=== PATIENT | male | born 1980 | race Caucasian/White ===

== ENCOUNTER 2019-06-12 09:18 | Outpatient (CLI) | payer MEDICARE, MEDICAID, SELFPAY ==
--- NOTE | 2019-06-12 09:30 | US_ITS ---
WS: [id number] Complete ABDOMINAL ULTRASOUND HISTORY: GASTRITIS UNSPECIFIED WITHOUT BLEEDING COMPARISON: None available. Liver: 14.9 cm in length. Liver is normal size and echogenicity with no mass or intrahepatic dilatati on. Gallbladder: Normally distended with no gallstones, wall thickening or pericholecystic fluid. Gallbladder wall thickness: 0.2 cm. Pancreas: Not visualized. Completely obscured by bowel gas. CBD: 0.6 cm. Top normal size. Right kidney: 12.5 cm x 4.9 cm x 4.8 cm. No mass, cortical thickening or hydronephrosis. Left kidney: 11.9 cm x 4.2 cm x 5.1 cm. No mass, cortical thickening or hydronephrosis. Spleen: Normal size and echogenicity. Abdominal aorta and IVC are within normal limits. No ascites. US/US abdomen complete* [id number] IMPRESSION: 1. Negative gallbladder. 2. Common bile duct top normal size. 3. Pancreas completely obscured by bowel gas.
== END 2019-06-12 09:19 | disposition home or self-care (01) ==
LOC: RAD 09:22 → RADWPI 09:25
PROVIDERS: Family Provider Family Medicine; PCP Family Medicine; Visit Provider Family Medicine
DX: K29.70 Gastritis, unspecified, without bleeding (principal)
CPT/HCPCS: 76700

== ENCOUNTER 2019-06-20 07:32 | Outpatient (CLI) | payer MEDICARE, MEDICAID, SELFPAY ==
--- NOTE | 2019-06-20 07:38 | NM_ITS ---
WS: [id number] NUCLEAR MEDICINE HIDA SCAN WITH GALLBLADDER EJECTION FRACTION HISTORY: RT SIDED ABD PAIN COMPARISON: Ultrasound 06/12/2019 TECHNIQUE: The patient was intravenously injected with 7.6 mCi of TC99m Mebrofenin. Immediate imaging over the right upper quadrant was followed by 5 minute image and additional images for a total of 60 minutes. Normal uptake of radiotracer throughout the liver. Activity identified in the gallbladder at 10 minutes and well distended by 60 minutes. Activity in the proximal small bowel was seen by 10 minutes. Good washout of the radiotracer from the liver by 60 minutes. The patient then drank 8 ounces of Ensure Plus. Ejection fraction at 60 minutes was 74%. Normal GB ej ection fraction is 35-75%. Post fatty meal symptoms: None. NM/NM hepatobiliary w phar* [id number] IMPRESSION: 1. Normal HIDA scan. 2. Normal gallbladder ejection fraction.
== END 2019-06-20 07:33 | disposition home or self-care (01) ==
LOC: RAD 07:36
PROVIDERS: Family Provider Family Medicine; PCP Family Medicine; Visit Provider Family Medicine
DX: R10.9 Unspecified abdominal pain (principal)
CPT/HCPCS: 78227; A9537

== ENCOUNTER 2019-08-26 09:30 | Day surgery (SDC) | payer MEDICARE, MEDICAID, SELFPAY ==
[2019-08-23 12:26] VITALS: BMI 34.7
[2019-08-26 09:43] VITALS: BP 123/82; PULSE 82; RESP 18; O2SAT 97
[2019-08-26] MEDS: sodium chloride 0.9% 1,000 ML 30 ML IV (09:52)
--- NOTE | 2019-08-26 10:01 | ANES.PREANE2 ---
Pre-Anesthetic Assessment Pre-Anesthetic Assessment: Height/Weight: Height 1.75 m Weight 106.594 kg Pulse Resp BP Pulse Ox 82 18 123/82 97 08/26/19 09:43 08/26/19 09:43 08/26/19 09:43 08/26/19 09:43 Preop Diagnosis: dys Proposed Procedure: Operation Date: 08/26/19 11:00 Proposed Procedures p EGD Dilation W/ Bougie 20160 R13.10(Not Applicable) - Akil Taylor MD Last intake: Intake Last Liquid Date 08/25/19 Last Liquid Time 22:30 Last Solid Date 08/25/19 Last Solid Time 19:30 Social: Social History: Tobacco and No alcohol Exam: Pre-Anes Outpt Exam: alert, oriented x 3, clear to auscultation bilaterally and regular rate & rhythm Airway: Submandibular: WNL Cervical ROM: WNL MP: 1 Dentition: Other (teeth ok) History/ROS: No significant history except as noted Pulmonary: Pulmonary: COPD and [place] CV/HEM: CV/HEM: CAD (03/2017 stent), HTN and MO : : None reported Hepatic: Hepatic: None reported GI: GI: GERD (controlled) Metabolic: Metabolic: Hyperlipidemia Musc/skel: Musc/skel: OA/DJD and Weakness (gen) Comments: MS Neuropsych: Neuropsych: Anxiety and Depression Anesthetic Plan: ASA status: 3 Anesthesia: Anesthesia Evaluation and MAC Risk of > 500 ml blood loss (7ml/kg in children): No Meds/Allergies Current Medications: Current Medications Generic Name Dose Route Start Last Admin Trade Name Freq PRN Reason Stop Dose Admin Sodium Chloride 1,000 mls @ 30 ml s/hr 08/26/19 09:45 08/26/19 09:52 Sodium Chloride 0.9% IV 08/27/19 09:44 30 mls/hr .Q24H KJ Administration PFSH Anesthesia PFSH: Medical History AVN (avascular necrosis of bone) Essential (primary) hypertension Surgical History H/O gastric bypass Family History Other Diabetes Heart disease Social History Smoking and tobacco status: current every day smoker Alcohol intake: former service: No History of recent travel: No Current gender identity: Male Data Anesthesia Cardiac Studies: No Data to Display
--- NOTE | 2019-08-26 11:29 | W.PM.OPSUD ---
Surgery/Procedure H&P Update DATE OF PROCEDURE: August 26, 2019 DATE H&P PERFORMED: 08/22/19 PREOP DIAGNOSIS: dys PLANNED PROCEDURE: Operation Date: 08/26/19 11:00 Proposed Procedures p EGD Dilation W/ Christy 60297 R13.10(Not Applicable) - Akil Taylor MD
[2019-08-26 11:35] VITALS: BP 110/69; PULSE 74; RESP 16; TEMP 36.8; O2SAT 97
--- NOTE | 2019-08-26 11:38 | ANE.PACU2 ---
Inpatient post-anesthesia follow up: Airway intact: Yes Vital signs: Temperature Pulse Rate 82 Respiratory Rate 18 Blood Pressure 123/82 Pulse Oximetry 97 Oxygen Delivery Me thod Room Air Oxygen Flow Rate Fraction of Inspir ed Oxygen Hydration adequate: Yes Nausea and vomiting: No Pain level: 1 Mental status: Baseline
[2019-08-26 11:50] VITALS: BP 117/77; PULSE 68; RESP 18; O2SAT 99
== END 2019-08-26 12:15 | disposition home or self-care (01) ==
PROVIDERS: PCP Family Medicine; Visit Provider Internal Medicine
DX: R13.10 Dysphagia, unspecified (principal); Z98.84 Bariatric surgery status; J44.9 Chronic obstructive pulmonary disease, unspecified; I25.10 Atherosclerotic heart disease of native coronary artery without angina pectoris; Z95.5 Presence of coronary angioplasty implant and graft; I10 Essential (primary) hypertension; I25.2 Old myocardial infarction; E78.5 Hyperlipidemia, unspecified; M19.90 Unspecified osteoarthritis, unspecified site; Z82.49 Family history of ischemic heart disease and other diseases of the circulatory system
CPT/HCPCS: 12345; 43235; J2704; J7030

== ENCOUNTER 2019-09-16 10:24 | Outpatient (CLI) | payer MEDICARE, MEDICAID, SELFPAY ==
--- NOTE | 2019-09-16 10:29 | FL_ITS ---
WS: [id number] MODIFIED BARIUM SWALLOW TECHNIQUE: Modified barium swallow with speech therapy using multiple consistencies. FLUOROSCOPY TIME: 2 minutes. CLINICAL INFORMATION: Other dysphagia COMPARISON: None. FINDINGS: Multiple consistencies utilized. No evidence of aspiration or penetration. No difficulties with bariu m tablet. FL/FL barium swallow modifd [id number] IMPRESSION: Unremarkable modified barium swallow
== END 2019-09-16 10:25 | disposition home or self-care (01) ==
LOC: RAD 10:26
PROVIDERS: PCP Family Medicine; Visit Provider Internal Medicine
DX: R13.19 Other dysphagia (principal)
CPT/HCPCS: 74230; 92611

== ENCOUNTER 2019-11-05 08:59 | Outpatient (CLI) | payer MEDICARE, MEDICAID, SELFPAY ==
[2019-11-05] MEDS: iohexol 300 mg/mL 50 mL Btl PO (09:30)
[2019-11-05] MEDS: iohexol 300 mg/mL 100 mL Btl IV (10:28)
--- NOTE | 2019-11-05 10:30 | CT_ITS ---
WS: [id number] CT ABDOMEN PELVIS TECHNIQUE: Contrast-enhanced CT of the abdomen and pelvis with coronal and sagittal reformatted image s. CLINICAL INFORMATION: nausea and vomiting COMPARISON: CT 4 and 2 DLP: 1148.[address] scans at [facility] use at least one of these dose optimization techniques: automat ed exposure control; mA and/or kV adjustment per patient size (includes targeted exams where dose is matched to clinical indication); or iterative reconstruction. FINDINGS: Prior postoperative changes gastric Mono-en-Y bypass. Small hiatal hernia. Noncontrast liver is pilar l. Normal spleen. Adrenal glands are normal. Normal renal parenchymal enhancement. Portal vein and sp lenic vein are patent. Lung bases are well aerated. Normal caliber abdominal aorta. Pancreas appears normal. Again seen is the hazy induration in the mid mesentery with a few prominent mesenteric root lymph nodes similar to previous. Bilateral THAs degrade images in the pelvis. Normal sigmoid colon. No evidence of small or large sharon l obstruction. Normal appendix. No free fluid in the abdomen or pelvis. Normal visualized lumbar spin e. CT/CT abdomen pelvis w con* [id number] IMPRESSION: 1. Hazy induration in the mid mesentery with prominent lymph nodes along the m esenteric root nonspecific but can be seen with mesenteric adenitis appears unc hanged. 2. Prior postoperative changes Mono-en-Y gastric bypass. 3. Normal liver and gallbladder. 4. No hydronephrosis in either kidney. 5. Bilateral THAs degrade images of the pelvis. Previously described left DIANE fluid collection appears to have resolved. 6. No other significant interval changes.
== END 2019-11-05 09:00 | disposition home or self-care (01) ==
LOC: RADWPI 09:02
PROVIDERS: PCP Family Medicine; Visit Provider Surgery
DX: R11.2 Nausea with vomiting, unspecified (principal); Z96.643 Presence of artificial hip joint, bilateral; Z98.84 Bariatric surgery status
CPT/HCPCS: 74177; Q9967

== ENCOUNTER 2019-11-13 06:00 | Outpatient (RCR) | payer MEDICARE, MEDICAID, SELFPAY | END 2019-12-04 23:59 | disposition home or self-care (01) | LOC: SPT 06:00 | PROVIDERS: PCP Family Medicine; Referring Provider Physical Medicine & Rehabilitation; Visit Provider Physical Medicine & Rehabilitation | DX: M48.14 Ankylosing hyperostosis [Forestier], thoracic region (principal); M48.062 Spinal stenosis, lumbar region with neurogenic claudication; M79.604 Pain in right leg; R20.2 Paresthesia of skin | CPT/HCPCS: 97110; 97113; 97162 ==

== ENCOUNTER → 2019-11-15 09:48 | Outpatient (BNVA) | payer MEDICARE, MEDICAID, SELFPAY | PROVIDERS: PCP Family Medicine; Visit Provider Internal Medicine | DX: Z11.59 Encounter for screening for other viral diseases (principal) | CPT/HCPCS: 87635 ==

== ENCOUNTER → 2019-11-28 10:24 | Outpatient (BNVA) | payer MEDICARE, MEDICAID, SELFPAY | PROVIDERS: PCP Family Medicine; Visit Provider Surgery | DX: Z20.828 Contact with and (suspected) exposure to other viral communicable diseases (principal) | CPT/HCPCS: 87635 ==

== ENCOUNTER → 2019-12-02 06:56 | Day surgery (SDC) | payer MEDICARE, MEDICAID, SELFPAY ==
[2019-11-29 13:16] VITALS: BMI 36.9
[2019-12-02 07:20] VITALS: BP 142/79; PULSE 65; RESP 16; TEMP 36.6; O2SAT 98
== END ==
PROVIDERS: PCP Family Medicine; Visit Provider Surgery
DX: Z01.818 Encounter for other preprocedural examination (principal)
CPT/HCPCS: J3010

== ENCOUNTER 2019-12-05 06:22 | Day surgery (SDC) | payer MEDICARE, MEDICAID, SELFPAY ==
[2019-12-05] VITALS (7 sets, daily range): BP systolic 120–142; BP diastolic 71–87; PULSE 66–95; RESP 17–19; TEMP 36.1–36.4; O2SAT 92–100; BMI 36.9
[2019-12-05] MEDS: sodium chloride 0.9% 1,000 ML 30 ML IV (06:50)
--- NOTE | 2019-12-05 06:56 | P.ANESASSM_ITS ---
Pre-Anesthetic Assessment Pre-Anesthetic Assessment: Height/Weight: Height 1.75 m Weight 113.398 kg Temp Pulse Resp BP Pulse Ox 97.0 F L 70 18 134/87 100 12/05/19 06:41 12/05/19 06:41 12/05/19 06:41 12/05/19 06:41 12/05/19 06:41 Preop Diagnosis: Chronic cholecystitis Proposed Procedure: Operation Date: 12/05/19 08:00 Proposed Procedures p Laparoscopic Cholecystectomy(Not Applicable) - Alan Storey MD Familial anesthetic complications: None Was Beta Reji taken within 24 hour s: Yes (plavix > 1 week ago) Last intake: Intake Last Liquid Date 12/05/19 Last Liquid Time 05:45 (sips with meds) Last Solid Date 12/04/19 Last Solid Time 22:30 Social: Social History: Tobacco Exam: Pre-Anes Outpt Exam: alert, oriented x 3, clear to auscultation bilaterally and regular rate & rhythm Airway: Cervical ROM: WNL MP: 4 Dentition: Chipped and Other (missing) CV/HEM: CV/HEM: CAD (stents 2018), HTN and [place] GI: GI: GERD Comments: gastric bypass Metabolic: Metabolic: Hyperlipidemia and Morbid obesity Musc/skel: Musc/skel: Lower Back Pain Comments: multiple sclerosis - last took prednisone 2 months ago 20 mg for a week (consider use of hydrocortisone if low bp develops intraoperatively). Neuropsych: Neuropsych: Anxiety and Depression Anesthetic Plan: ASA status: 4 Anesthesia: General Other: Multiple sclerosis - patient informed of risk of exacerbation during general anesthesia. Agress to proceed. Will stricly avoid hyperthermia and succinylcholine. Will reverse Nondepolizers NMBs with suggamadex to prevent any residual weakness, though he does states he has no baseline weakness. Risk of > 500 ml blood loss (7ml/kg in children): No Meds/Allergies Current Medications: Current Medications Generic Name Dose Route Start Last Admin Trade Name Freq PRN Reason Stop Dose Admin Sodium Chloride 1,000 mls @ 30 ml s/hr 12/05/19 06:30 12/05/19 06:50 Sodium Chloride 0.9% IV 12/06/19 06:29 30 mls/hr .Q24H KJ Administration PFSH Anesthesia PFSH: Medical History AVN (avascular necrosis of bone) Essential (primary) hypertension Surgical History (Updated 11/08/19 @ 16:32 by Alan Storey MD) H/O esophagogastroduodenoscopy H/O gastric bypass S/P hip replacement bilateral Family History Other Diabetes Heart disease Social History Smoking and tobacco status: current every day smoker Alcohol intake: former Marital status: service: No Current occupational status: disabled History of recent travel: No Current gender identity: Male Data Anesthesia Cardiac Studies: No Data to Display
--- NOTE | 2019-12-05 08:08 | W.PM.OPSUD ---
Surgery/Procedure H&P Update DATE OF PROCEDURE: December 05, 2019 DATE H&P PERFORMED: 11/08/19 H&P UPDATE INFORMATION: I have reviewed H&P completed within last 30 days, I have examined patient prior to procedure and No changes to prior documentation PREOP DIAGNOSIS: Chronic cholecystitis PLANNED PROCEDURE: Operation Date: 12/05/19 08:00 Proposed Procedures p Laparoscopic Cholecystectomy(Not Applicable) - Alan Storey MD
--- NOTE | 2019-12-05 09:14 | PM.OP ---
Operative Report Date of procedure: December 05, 2019 Pre-op Diagnosis: Chronic cholecystitis Post-op diagnosis: same Procedure Done: Laparoscopic cholecystectomy Specimens removed/disposition: Gallbladder Surgeon: Alan Storey Anesthesia: General Estimated blood loss (mL): 5 Condition: stable Disposition: PACU Procedure: The patient was taken to the operating room and was intubated under general anesthesia. After the antibiotic had been administered, the abdomen was prepped and draped in a sterile manner. Using a #15 blade, a 1 centimeter infraumbilical curvilinear incision was made and using an open Indy technique the peritoneal cavity was entered. A 10 millimeter port was placed and 15 millimeters of pneumoperitoneum was created. A 10 millimeter, 30 degrees scope was then introduced. Three 5 millimeter ports were placed in the epigastric, midclavicular and the anterior axillary line two fingerbreadths below the costal margin on the right side under the direct visualization. Ratcheted forceps were introduced into the lateral most port and was used to retract the fundus of the gallbladder cephalad and using forceps the infundibulum of the gallbladder was retracted laterally. Using L-hook cautery the peritoneum overlying the Calot's triangle was opened medially and laterally until the cystic duct and the cystic artery were skeletonized. Dissection was carried along the body of the gallbladder and after ensuring critical view of safety, 4 clips applied on the cystic duct and 3 clips applied on the cystic artery and cut leaving, 3 clips on the remaining portion of the duct and 2 clips on the remaining portion of the anterior and posterior branch of the cystic artery. The rest of the gallbladder was dissected off the liver using L-hook cautery. There was no bleeding or bile leaking noted from the gallbladder fossa and the clips appeared to be in place. An EndoCatch bag was introduced to remove the gallbladder. All the ports were removed under direct visualization and there was no bleeding noted from the port sites. The fascia of the umbilicus was closed using [id number] 0 Vicryl sutures and the subcutaneous tissue was approximated using 3-0 Vicryl sutures. The skin at all four ports were closed using 4-0 Monocryl and Dermabond. A total of 10 millimeters of 0.5% Marcaine was infiltrated around the port sites. The patient was stable throughout the procedure.
--- NOTE | 2019-12-05 09:54 | ANE.PACU2 ---
Inpatient post-anesthesia follow up: Airway intact: Yes Vital signs: Temperature 97.6 F Pulse Rate 80 Respiratory Rate 18 Blood Pressure 126/78 Pulse Oximetry 97 Oxygen Delivery Me thod Room Air Oxygen Flow Rate Fraction of Inspir ed Oxygen Hydration adequate: Yes Nausea and vomiting: No Pain level: 1 Mental status: Baseline
== END 2019-12-05 10:16 | disposition home or self-care (01) ==
PROVIDERS: PCP Family Medicine; Visit Provider Surgery
PROC: 0FT44ZZ Resection of Gallbladder, Percutaneous Endoscopic Approach (ICD-10-PCS; CPT 47562; principal; 2019-12-05 08:00)
DX: K81.1 Chronic cholecystitis (principal); I25.10 Atherosclerotic heart disease of native coronary artery without angina pectoris; Z95.5 Presence of coronary angioplasty implant and graft; I10 Essential (primary) hypertension; I25.2 Old myocardial infarction; K21.9 Gastro-esophageal reflux disease without esophagitis; E78.5 Hyperlipidemia, unspecified; E66.01 Morbid (severe) obesity due to excess calories; Z68.36 Body mass index [BMI] 36.0-36.9, adult; F17.210 Nicotine dependence, cigarettes, uncomplicated; Z82.49 Family history of ischemic heart disease and other diseases of the circulatory system; Z83.3 Family history of diabetes mellitus
CPT/HCPCS: 47562; 12345; 88304; J0690; J2405; J2704; J3010; J3490; J7030

== ENCOUNTER 2020-01-21 08:45 | Emergency (ER) | payer MEDICARE, MEDICAID, SELFPAY ==
[2020-01-21 08:52] VITALS: BP 157/97; PULSE 73; RESP 16; TEMP 36.2; O2SAT 97; BMI 38.4
[2020-01-21 08:56] VITALS: O2SAT 97
--- NOTE | 2020-01-21 09:07 | ED_ITS ---
HPI - Wound/Laceration General: Chief Complaint: Wound/Laceration Stated Complaint: LACERATION TO R HAND Time Seen by Provider: 01/21/20 08:55 History of Present Illness: HPI narrative: Patient is a 39-year-old male comes to the ED with laceration to right thumb. Injury occurred just prior to arrival. Patient was working with some glass and he accidentally cut his right thumb on a sharp edge. Patient denies any broken glass or pieces of glass that broke off or any foreign body in laceration. Patient is on clopidogrel. He is unsure of his last tetanus. Denies any other injury and says that laceration does not really hurt. He is able to move his hand and thumb normally. Associated symptoms: Denies chills, fever(s), nausea or vomiting Review of Systems Const: Denies: fever(s), chills or fatigue Eyes: Denies: change in vision or eye discomfort ENMT: Denies: throat pain, odynophagia, nasal discharge or nasal congestion Card: Denies: chest pain, palpitations, edema, swelling of feet/ankles, dyspnea on exertion or orthopnea Resp: Denies: dyspnea, productive cough or non-productive cough GI: Denies: abdominal pain, nausea, vomiting, diarrhea, constipation or hematochezia : Denies: flank pain, difficulty urinating, dysuria or hematuria Musc: Denies: neck pain, back pain or extremity swelling Skin/Breast: Reports: new lesions (Laceration to right thumb.); Denies: rash Neuro: Denies: headache(s), numbness in extremities or weakness in extremities PFS ED PFSH: Medical History AVN (avascular necrosis of bone) Essential (primary) hypertension Multiple sclerosis Surgical History H/O esophagogastroduodenoscopy H/O gastric bypass S/P hip replacement bilateral Status post laparoscopic cholecystectomy (12/05/19) Family History Other Diabetes Heart disease Social History Smoking and tobacco status: current every day smoker Alcohol intake: former Substance/Drug Use: never Marital status: service: No Current occupational status: disabled History of recent travel: No Current gender identity: Male Physical Exam Const: COMMON NORMALS: no acute distress, patient oriented x3 and alert GENERAL APPEARANCE: cooperative and comfortable HENMT: COMMON NORMALS: normocephalic HEAD & SCALP: normocephalic MOUTH: Normal oral and palatal mucosa present THROAT: posterior oropharynx normal and uvula midline Neck/C-Spine: COMMON NORMALS: supple GENERAL: Yes normal visual inspection Resp: COMMON NORMALS: normal respiratory effort, No retractions, No use of accessory muscles and clear to auscultation bilaterally AUSCULTATION: clear to auscultation bilaterally Cardio: COMMON NORMALS: regular rate, regular rhythm, S1 normal heart sound present, S2 normal heart sound present, No gallops present (Cardio), No clicks present (Cardio), No murmurs present (Cardio) and Peripheral pulses 2+ throughout RATE: regular rate RHYTHM: regular rhythm HEART SOUNDS: S1 normal heart sound present and S2 normal heart sound present PERIPHERAL PULSES: Peripheral pulses 2+ throughout GI: COMMON NORMALS: Normal to inspection, nondistended, normoactive bowel sounds present, Soft to palpation, non-tender and no masses PALPATION: Yes Soft to palpation : COMMON NORMALS: Yes no CVA tenderness BLADDER/KIDNEY EXAM: Yes no CVA tenderness Back/Pelvis: COMMON NORMALS: no CVA tenderness Extremity: NARRATIVE EXTREMITY EXAM: Superficial laceration skin flap to right thumb. Range of motion to right hand and digits is normal. Radial pulse 2+. GENERAL: Yes normal exam except as noted Neuro: COMMON NORMALS: patient oriented x3 and moves all extremities SENSORIUM/ORIENTATION: Yes alert Skin: TRAUMA: laceration flap (Circular flap laceration. The skin flap appears to have poor blood flow to it. ), actively bleeding (Slow bleeding), superficial, motor nerve function intact (Patient has full range of motion with fingers.) and sensation intact Procedures Laceration Laceration 1: Site: hand (At the base and dorsal aspect of first digit) Side (If applicable): right Size (cm): 1 Description: flap Depth: simple, single layer Local Anesthetic: other anesthetic (No static) Pre-repair: irrigated extensively (Extensively with normal saline. Skin was cleaned with CHG swab.) Skin layer closed with: other (Dermabond--since skin flap has poor circulation it will likely . I am going to apply glue to seal skin flap down for the meantime to stop bleeding.) Size (cm): other (Dermabond) Technique: other (Dermabond) Course Vital Signs: Vital signs: Vital Signs Temperature 97.2 F L 01/21/20 08:52 Pulse Rate 73 01/21/20 08:52 Respiratory Rate 16 01/21/20 08:52 Blood Pressure 157/97 01/21/20 08:52 Pulse Oximetry 97 01/21/20 08:56 MDM - Wound/Laceration MDM Narrative: Medical decision making narrative: Patient is a 39-year-old male with a small, superficial skin flap laceration to dorsal aspect of right thumb. Range of motion in hand and digits full and completely normal. Laceration was irrigated extensively with saline and skin was cleaned with CHG swab. Dermabond was applied to help seal up skin flap. Bacitracin and bandage applied. Patient was given updated tetanus and sent home with a prophylactic pr escription of cephalexin. Return to ED precautions given. Patient understood and agreed with plan. Discharge Plan Discharge Patient Disposition: Home Clinical Impression: Laceration Condition: Stable Prescriptions: New cephalexin 500 mg capsule 500 mg PO TID 4 Days Qty: 12 RF: 0 No Action clopidogrel 75 mg tablet 75 mg PO DAILY RF: 0 dextroamphetamine-amphetamine 20 mg capsule,extended release 24hr 20 mg PO DAILY RF: 0 hydroxyzine pamoate 25 mg capsule 25 mg PO BID PRN (Reason: Anxiety) RF: 0 nitroglycerin 0.4 mg tablet, sublingual 0.4 mg SUBLINGUAL Q5M PRN (Reason: Chest Pain) RF: 0 pantoprazole 40 mg tablet,delayed release (DR/EC) 40 mg PO DAILY RF: 0 sertraline 100 mg tablet 200 mg PO DAILY RF: 0 trazodone 100 mg tablet 100 mg PO DAILY RF: 0 sucralfate 1 gram tablet 1 gm PO TID Qty: 42 RF: 0 pantoprazole [Protonix] 40 mg tablet,delayed release (DR/EC) 40 mg PO BID 14 Days Qty: 28 RF: 0 metoprolol succinate 50 mg tablet extended release 24 hr 50 mg PO DAILY Qty: 90 RF: 3 furosemide 20 mg Tablet 20 mg PO BID RF: 0 lorazepam 1 mg Tablet 1 mg PO BID PRN (Reason: Anxiety) RF: 0 aripiprazole 5 mg Tablet 5 mg PO DAILY RF: 0 ferrous sulfate 27 mg iron Tablet 27 mg PO DAILY RF: 0 Zofran 4 mg tablet 4 mg PO Q6H PRN (Reason: nausea and vomiting) Qty: 20 RF: 0 Colace 100 mg capsule 100 mg PO BID Qty: 30 RF: 0 Discharge Orders: Discharge Order (Routine); Ordered 01/21/20 Ordered By: Garrick Mccracken Referrals: Garrick Holt MD [Primary Care Provider] - Discharge Diet: Regular Discharge Activity: Resume usual activity Patient Instructions: Laceration (ED), Skin Adhesive Care (ED) Activity Restrictions/Additional Instructions: Take full course of antibiotics as prescribed. Keep laceration site clean and dry for the next 48 hours. Then after that you can clean, apply triple antibiotic ointment and re-bandage daily. Watch for signs of infection such as redness, warmth, increased tenderness and puslike drainage. If you see the signs of infection return to the ED, urgent care or PCP for reevaluation. call your PCP to schedule a follow-up appointment for reevaluation in about 10 days. Continue taking all home meds. Follow discharge plans as discussed. You can return to the ED if symptoms worsen. Coding Level of Care Code ED [employer] Hel[employer] for Kapil Montez Exam Comprehensive
--- NOTE | 2020-01-21 09:52 | PC.NURSE ---
applied bactiracin and wrapped pt's wound with kerlix and coban
[2020-01-21] MEDS: tetanus-diphtheria tox (adult) 0.5 mL SDV IM (09:55)
[2020-01-21] MEDS: bacitracin ointment Pkt 1 EACH TOPICAL (09:56)
== END 2020-01-21 09:40 | disposition home or self-care (01) ==
PROVIDERS: Emergency Provider Physician Assistant; PCP Family Medicine
DX: S61.011A Laceration without foreign body of right thumb without damage to nail, initial encounter (principal); W25.XXXA Contact with sharp glass, initial encounter; Z79.02 Long term (current) use of antithrombotics/antiplatelets; I10 Essential (primary) hypertension; G35 Multiple sclerosis; F17.210 Nicotine dependence, cigarettes, uncomplicated; Z23 Encounter for immunization
CPT/HCPCS: 12001; 12345; 90471; 90714; 99281; 99282; A6446

== ENCOUNTER → 2020-01-26 12:19 | Outpatient (BNVA) | payer MEDICARE, MEDICAID, SELFPAY | PROVIDERS: PCP Family Medicine; Visit Provider Nurse Practitioner | DX: S69.90XA Unspecified injury of unspecified wrist, hand and finger(s), initial encounter (principal); X58.XXXA Exposure to other specified factors, initial encounter; M25.531 Pain in right wrist | CPT/HCPCS: 73110 ==

== ENCOUNTER → 2020-02-03 07:57 | Outpatient (BNVA) | payer MEDICARE, MEDICAID, SELFPAY | PROVIDERS: PCP Family Medicine; Visit Provider Specialist | DX: G56.03 Carpal tunnel syndrome, bilateral upper limbs (principal); G56.23 Lesion of ulnar nerve, bilateral upper limbs; F17.210 Nicotine dependence, cigarettes, uncomplicated | CPT/HCPCS: 95886; 95910; 99214 ==

== ENCOUNTER 2020-03-23 10:50 | Outpatient (CLI) | payer MEDICARE, MEDICAID, SELFPAY ==
--- NOTE | 2020-03-23 10:58 | MR_ITS ---
WS: [id number] MRI BRAIN WITH AND WITHOUT CONTRAST HISTORY: G35 - Multiple sclerosis COMPARISON: 05/24/2016 TECHNIQUE: Multiplanar imaging performed through the brain with Prohance 19 ml's IV. No acute infarcts are seen. Johnson-white matter differentiation is well preserved. There are a few righ t-sided T2 and FLAIR signal hyperintensities in a paraseptal distribution as seen on the prior study. These are perpendicular to the corpus callosum extending to the corpus callosum without enhancement. No significant progression or new demyelinating plaques since the prior study. No susceptibility artifacts or prior lacunar infarcts. Ventricles and extra-axial spaces are normal. Clivus and pituitary gland are normal. Visualized posterior fossa and brainstem are also normal. Postcontrast images are negative for masses or vascular malformations. Dural venous sinuses are normal. Paranasal sinuses: Well aerated with no significant disease. Mastoid air cells: Normal. Calvarium and scalp: Calvarium is intact. Calcifications in the scalp bilaterally are stable. MR/MR head wo/w con [id number] IMPRESSION: 1. No enhancing demyelinating lesions or active plaques. 2. RIGHT pericallosal/paraseptal demyelinating plaques are stable with no prog ression since 2017.
--- NOTE | 2020-03-23 10:58 | MR_ITS ---
WS: [id number] MRI CERVICAL SPINE with and without contrast. HISTORY: G35 - Multiple sclerosis COMPARISON: 05/24/2016. Multiplanar, multisequence imaging performed of the cervical spine with and without contrast. Quality and detail this examination is limited. Normal cervical alignment with no compression fracture or significant disc space narrowing. Signal within the cervical cord is normal. No atrophy or enlargement of the cervical cord. No enhanci ng lesions. No demyelinating plaques are evident. Visualized posterior fossa is unremarkable. Craniocervical junction, C1 and C2 relationship, odontoid process and soft tissues are normal. C2-C3: Normal. C3-C4: Small RIGHT foraminal osteophytes. Mild RIGHT foraminal narrowing. C4-C5: Mild annular disc bulging and foraminal osteophytes. Very mild foraminal narrowing. C5-C6: Central disc protrusion. No stenosis. C6-C7: No significant stenosis. Quality is limited. C7-T1: Normal. Paraspinal soft tissue are normal. MR/MR cervical spine wo/w [id number] IMPRESSION: 1. Quality of this examination is limited. Very limited detail in the cervical cord. 2. No evidence for demyelinating plaques or abnormal enhancement. 3. Mild foraminal stenosis as above. No high-grade stenosis.
== END 2020-03-23 10:51 | disposition home or self-care (01) ==
LOC: RADSHAW 10:55
PROVIDERS: PCP Family Medicine; Visit Provider Specialist
DX: G35 Multiple sclerosis (principal)
CPT/HCPCS: 70553; 72156; A9579

== ENCOUNTER → 2020-04-28 15:54 | Outpatient (BNVA) | payer MEDICARE, MEDICAID, SELFPAY | PROVIDERS: PCP Family Medicine; Visit Provider Specialist | DX: G35 Multiple sclerosis (principal); F17.210 Nicotine dependence, cigarettes, uncomplicated | CPT/HCPCS: G0463 ==

== ENCOUNTER → 2020-05-13 10:00 | Outpatient (BNVA) | payer MEDICARE, MEDICAID, SELFPAY | PROVIDERS: PCP Family Medicine; Visit Provider Nurse Practitioner | DX: Z20.828 Contact with and (suspected) exposure to other viral communicable diseases (principal) | CPT/HCPCS: 87635 ==

== ENCOUNTER → 2020-05-28 08:44 | Outpatient (BNVA) | payer MEDICARE, MEDICAID, SELFPAY | PROVIDERS: PCP Family Medicine; Visit Provider Internal Medicine Cardiovascular Disease | DX: R00.0 Tachycardia, unspecified (principal); I10 Essential (primary) hypertension | CPT/HCPCS: 80162; 84443 ==

== ENCOUNTER → 2020-07-19 12:52 | Outpatient (BNVA) | payer MEDICARE, MEDICAID, SELFPAY | PROVIDERS: PCP Family Medicine; Visit Provider Nurse Practitioner Family | DX: M79.672 Pain in left foot (principal) | CPT/HCPCS: 73630 ==

== ENCOUNTER → 2020-08-05 09:29 | Outpatient (BNVA) | payer MEDICARE, MEDICAID, SELFPAY | PROVIDERS: PCP Family Medicine; Referring Provider Family Medicine; Visit Provider Specialist | DX: M77.32 Calcaneal spur, left foot (principal); M79.672 Pain in left foot | CPT/HCPCS: 73630 ==

== ENCOUNTER 2020-08-26 06:00 | Outpatient (RCR) | payer MEDICARE, SELFPAY | END 2020-09-02 23:59 | disposition home or self-care (01) | LOC: SPT 06:00 | PROVIDERS: Referring Provider Specialist; Visit Provider Specialist | DX: M72.2 Plantar fascial fibromatosis (principal); M76.62 Achilles tendinitis, left leg | CPT/HCPCS: 97110; 97162 ==

== ENCOUNTER → 2020-09-09 08:08 | Outpatient (BNVA) | payer MEDICARE, MEDICAID, SELFPAY | PROVIDERS: PCP Family Medicine; Visit Provider Specialist | DX: G35 Multiple sclerosis (principal); G47.10 Hypersomnia, unspecified; F17.210 Nicotine dependence, cigarettes, uncomplicated | CPT/HCPCS: 99214 ==

== ENCOUNTER 2020-09-09 20:00 | Outpatient (CLI) | payer MEDICARE, MEDICAID, SELFPAY | END 2020-09-09 20:01 | disposition home or self-care (01) | LOC: SLEEP 09-10 09:26 | PROVIDERS: PCP Family Medicine; Visit Provider Specialist | DX: G47.10 Hypersomnia, unspecified (principal); R06.83 Snoring; R53.83 Other fatigue; G47.33 Obstructive sleep apnea (adult) (pediatric) | CPT/HCPCS: 95810 ==

== ENCOUNTER 2020-09-30 15:15 | Emergency (ER) | payer MEDICARE, MEDICAID, SELFPAY ==
--- NOTE | 2020-09-30 16:08 | ECG_ITS ---
[facility] Test Date: 2020-09-30 Pat Name: Joselito Avendano Department: Room: Gender: Male Data Consultant: armando : 1980 Requested By: Christian Thibodeaux Order Number: [id number] Omer MD: Xiao Herzog M.D. Measurements Intervals [place] Rate: 98 P: 31 DE: 183 QRS: 3 QRSD: 81 T: 54 QT: 326 QTc: 417 Interpretive Statements SINUS RHYTHM POSSIBLE LEFT ATRIAL ENLARGEMENT [-0.1mV P WAVE IN V1/V2] Compared to ECG 06/11/2018 17:49:07 Sinus tachycardia no longer present T-wave abnormality no longer present Electronically Signed On 10-01-2020 14:38:41 CDT by Xiao Herzog M.D. [id number]
[2020-09-30 16:09] VITALS: BP 127/84; PULSE 95; RESP 16; TEMP 36.2; O2SAT 97; BMI 38.4
== END 2020-09-30 19:44 | disposition left against medical advice (07) ==
LOC: ER 15:33
PROVIDERS: Emergency Provider Family Medicine; PCP Family Medicine
DX: R07.9 Chest pain, unspecified (principal); R00.2 Palpitations; R53.83 Other fatigue; R06.02 Shortness of breath; Z53.21 Procedure and treatment not carried out due to patient leaving prior to being seen by health care provider
CPT/HCPCS: 93005

== ENCOUNTER → 2020-10-06 14:00 | Outpatient (BNVA) | payer MEDICARE, MEDICAID, SELFPAY | PROVIDERS: PCP Family Medicine; Visit Provider Internal Medicine Cardiovascular Disease | DX: I10 Essential (primary) hypertension (principal); I25.10 Atherosclerotic heart disease of native coronary artery without angina pectoris; R06.02 Shortness of breath; I20.0 Unstable angina | CPT/HCPCS: 80048; 85025; 85610 ==

== ENCOUNTER 2020-10-07 04:42 | Day surgery (SDC) | payer MEDICARE, MEDICAID, SELFPAY ==
[2020-10-07] VITALS (28 sets, daily range): BP systolic 98–140; BP diastolic 51–90; PULSE 56–77; RESP 12–23; TEMP 37.1–37.2; O2SAT 95–100; BMI 39.4
--- NOTE | 2020-10-07 05:00 | XACV_ITS ---
Exam Room: 1 Ht: 175 cm Wt: 123 kg BSA: 2.51 m2 Gender: Male : 1980 Exam Priority: Routine Indication(s): - Unstable angina Procedure(s): Procedure Description: Diagnostic procedure Procedure Description: PCI procedure Procedure Description: Drug Eluting Coronary Stent Procedure Description: Coronary Angiography Diagnostic Cath Status: Elective Diagnostic Findings * Left Main has no disease. * Circumflex has no disease. * Distal Left Anterior Descending: significant 80% stenosis, ARACELI: 3 flow. * Distal Left Anterior Descending: significant 80% stenosis, ARACELI: 3 flow. * Proximal Right Coronary Artery: luminal irregularities 20% stenosis, ARACELI: 3 flow. * First Obtuse Marginal Branch Segment: moderate 50% stenosis, ARACELI: 3 flow. * Coronary angiography shows co-dominance. PCI Status: Elective Interventional Findings * Distal Left Anterior Descendin% stenosis treated with a MDT R INDIO 2.25X12 JILL, and MDT R INDIO 2.25X15 JILL. 0% residual stenosis, ARACELI: 3 flow. * Distal Left Anterior Descendin% stenosis treated with a Drug Eluting Stent. 0% residual stenosis, ARACELI: 3 flow. Conclusions 1. Distal LAD was noted to have 80% tandem hazy stenosis, it was thought to be the culprit vessel. Both lesions were treated with 2 overlapping drug-eluting stents. 2. There is significant coronary artery disease with two vessel disease. 3. Distal Left Anterior Descending was treated with a Drug Eluting Stent, and Drug Eluting Stent. 4. Distal Left Anterior Descending was treated with a Drug Eluting Stent. Recommendations * 1-Return to inpatient for close monitoring and routine cath care2-Risk factor modification for secondary prevention3-Statin and aspirin 81 mg life--long, if tolerated4-Continue Plavix 75mg p.o. daily for at least one year. We will assess at the end of one year again to continue if further or not5-Continue optimal medical management6-Follow up with Dr. Goldstein in four weeks and your primary care in 10 days. Diagnostic RX Recommendation: PCI w/o planned CABG Pressures Phase:Rest AO : 99 / 78 ( 89 ) @ 5:39:00 AM 105 / 66 ( 83 ) @ 5:47:00 AM 100 / 70 ( 86 ) @ 5:58:00 AM Clinical Evaluation EBL: 5mL-10mL Procedural Details Procedure Consent Obtained. Current Diagnosis : Unstable angina. Pre-Procedure Time Out. Identified patient by full name and date of as verbalized by the patient/guarantor. Does the consent match the physician's order: Yes. Accurate & Complete Informed Consent: Yes. Inpatient/Outpatient History & Physical on Chart: Yes. If H&P is completed, is and addenduem needed: Yes; If yes, is the addendum complete: Yes. Visualize and Verify Site with Patient/Guarantor: N/A. Relevant Radiology Images available: Yes. The risks, benefits, and alternatives of sedation and/or procedure were discussed by physician. The patient agrees to continue. Procedure started. HA Clinical Fraility Score: 3: Managing Well. Dredge Lever Operator Indications: New Onset Angina, H/O CAD, Unstable Angina. Chest Pain Symptom Assessment: Typical Angina Symptoms. Cardiovascular Instability: No. Correct patient, site and procedure confirmed by cath team. Current diagnosis: Unstable angina. PERRLA. 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 Lungs clear x 5 lobes. IV Site on Arrival: 20 gauge in the left anticubital. IV Fluids: 0.9% NaCl at KVO. 0 mL infused prior to clinical laboratory technologist. Oxygen started at 2liters/min via nasal canula. Pre Procedural Pulses: bilateral dorsalis pedis was 3+. Pre Procedural Pulses: bilateral posterior tibial was 3+. Pre Procedural Pulses: bilateral radial was 3+. right groin was prepped with chloroprep then draped in the usual sterile fashion. right radial was prepped with chloroprep then draped in the usual sterile fashion. Physician notified. Baseline sample Acquired. HR: 62 BPM. Patient's family unavailable. Equipment: 6F - Radial. Cardiac Cath Pack. ACIST Manifold Kit Model BT 2000. Heparinized Saline (2 units/mL), 1000 mL bag. Physician arrived. Physician scrubbed in. Immediate Pre-Procedure Time Out. Correct Patient: Yes; Correct Procedure: Yes; Correct Site: Yes; Correct Patient Position: Yes; Correct Supplies: Yes Dried Flammable Prep: N/A; Blood Products Available: N/A. Lidocaine 1% infiltrated to the right radial. Arterial access obtained. A 5 citizen of [place] TIG catheter in over the exchange wire. Multiple views taken of left coronary artery. Catheter redirected to the RCA. Multiple views taken of right coronary artery. Catheter removed over the exchange wire. Diagnostic cath complete, starting intervention. PCI Indication: New Onset Angina. 6 citizen of [place] XB 3.5 guide catheter was inserted over the wire. [place] guidewire was advanced through the guide catheter to lesion in the distal LAD. Inflation Number : 1 A RADHA Muller INDIO 2.25X12 JILL -Lot Number # [id number] was prepped and advanced across the Dist LAD. The stent was deployed at 14 BITA for 0:16 seconds. Exp 10/21/2022. Stent balloon out over wire. Inflation Number : 2 A RADHA R INDIO 2.25X15 JILL -Lot Number [id number] was prepped and advanced across the Dist LAD. The stent was deployed at 14 BITA for 0:26 seconds. Exp 02/06/2022. Stent balloon out over wire. Guidewire pulled back into the guide and results were checked with cineography. Wire out. ACT drawn. Results 22 seconds. Therapeutic limits - pre-heparin administration 90-150 seconds and monitoring heparin during a vascular procedure >250 seconds. Guide catheter out over the exchange wire. Dr. Goldstein scrubbed out. TR band placed. Hemostasis obtained. Post Procedure: Pulses reassessed and unchanged. PERRLA. 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 No VTE prophylaxis required. Medication's Wasted: Lidocaine 1% = 18 mL. Medication's Wasted: Nitro = 49.8 mg. Medication's Wasted: Heparin = 4000 Units. Post-op diagnosis: Distal Obstructive LAD disease. Complications: none. Estimated blood loss: 5mL-10mL. Procedure completed. Patient transferred by wheelchair to CPRU. Vital chart was stopped. Access Site Site: Right Radial artery Sheath Size: 6 Fr Hemostasis Success: Unsuccessful Procedure Medications Start: 6:30 AM Stop: 6:30 AM Medication: Versed Amount: 1 mg Route: I.V. Start: 6:30 AM Stop: 6:30 AM Medication: Fentanyl Amount: 50 mcg Route: I.V. Start: 6:33 AM Stop: 6:33 AM Medication: Versed Amount: 1 mg Route: I.V. Start: 6:33 AM Stop: 6:33 AM Medication: Fentanyl Amount: 50 mcg Route: I.V. Start: 6:36 AM Stop: 6:36 AM Medication: Nitrogylcerin Amount: 200 mcg Route: I.A. Start: 6:38 AM Stop: 6:38 AM Medication: Heparin Amount: 5000 units Route: I.V. Start: 6:45 AM Stop: 6:45 AM Medication: Versed Amount: 1 mg Route: I.V. Start: 6:45 AM Stop: 6:45 AM Medication: Fentanyl Amount: 50 mcg Route: I.V. Start: 6:45 AM Stop: 6:45 AM Medication: Heparin Amount: 5000 units Route: I.V. Start: 6:47 AM Stop: 6:47 AM Medication: Versed Amount: 1 mg Route: I.V. Start: 6:47 AM Stop: 6:47 AM Medication: Fentanyl Amount: 50 mcg Route: I.V. Start: 6:58 AM Stop: 6:58 AM Medication: Versed Amount: 1 mg Route: I.V. Start: 6:58 AM Stop: 6:58 AM Medication: Fentanyl Amount: 50 mcg Route: I.V. Start: 7:09 AM Stop: 7:09 AM Medication: Heparin Amount: 2000 units Route: I.V. I, the attending physician, have reviewed and verified all procedure medications. Yes, all medications given per verbal order History/Risk Factors Hypertension: Yes Dyslipidemia: No Peripheral Arterial Disease (PAD): No Myocardial Infarction (NH): No Obesity: No Renal Disease: No Prior Interventions PCI: No CABG: No Valve Surgery: No Report Signatures Finalized by Eleni Goldstein MD on 10/20/2020 05:55 PM
[2020-10-07] MEDS: diphenhydrAMINE 50 mg Capsule PO (05:32)
[2020-10-07 05:53] LABS: SARS Covid-2 Antigen Negative (Negative)
--- NOTE | 2020-10-07 06:22 | W.PM.OPSUD ---
Surgery/Procedure H&P Update DATE OF PROCEDURE: October 07, 2020 DATE H&P PERFORMED: 10/07/20 H&P UPDATE INFORMATION: I have reviewed H&P completed within last 30 days, I have examined patient prior to procedure and No changes to prior documentation PREOP DIAGNOSIS: Unstable angina PLANNED PROCEDURE: Operation Date: 10/07/20 06:00 Proposed Procedures p left Cardiac Catheterization 52700 I25.10(Left) - Eleni Goldstein MD PATIENT REASSESSED PRIOR TO SEDATION, WITH NO CHANGE NOTED: Yes PHYSICAL EXAM: alert, oriented x 3, clear to auscultation bilaterally and regular rate & rhythm AIRWAY EVAL/ANESTHESIA PLAN: ASA II, Risks, benefits & alternatives of sedation and/or procedure discussed and Patient agrees to continue as planned ADDITIONAL INFORMATION: Patient has been explained all risk benefit and he understand the risk of urgent emergent bypass surgery, major minor vascular intervention, transfusion major minor bleed stroke . He would like to proceed with it
--- NOTE | 2020-10-07 07:30 | SUR.PHASEII ---
POST OP FUIDS 0.9% NS at 100 ml/hr as instructed.
[2020-10-07 08:18] LABS: Chol HDL Ratio 6.86 mg/dL (1.0-5.00); Cholesterol 144 mg/dL (0-200); HDL Cholesterol 21 mg/dL (60-100); LDL Cholesterol Calculated 99 mg/dL (50-129); LDL HDL Ratio 4.71 RATIO (0.00-3.22); Triglycerides 122 mg/dL (0-150)
[2020-10-07] MEDS: clopidogrel 300 mg Tablet PO (08:26)
[2020-10-07] MEDS: aspirin 81 mg Chew Tablet 324 MG PO (09:02)
[2020-10-07] MEDS: atorvastatin 40 mg Tablet 80 MG PO (09:02)
--- NOTE | 2020-10-07 10:25 | PC.NURSE ---
3ml air removed from TR band. Site asymptomatic. Will continue to monitor. Educated patient on reportable signs and symptoms, pt verbalized understanding.
--- NOTE | 2020-10-07 10:40 | PC.NURSE ---
3ml air removed from TR band, 2 ml air placed back into TR band due to leaking at insertion site. Will continue to monitor.
--- NOTE | 2020-10-07 11:10 | PC.NURSE ---
3 ml air removed from right radial TR band. No oozing or leaking at site. Will continue to monitor.
--- NOTE | 2020-10-07 11:25 | SUR.PHASEII ---
3ml of air removed from TR band at this time. Site asymptomatic. Will continue to monitor.
--- NOTE | 2020-10-07 11:55 | SUR.PHASEII ---
3ml air removed from TR band. TR band deflated and left in place to monitor for bleeding. Site asymptomatic. Will continue to monitor.
--- NOTE | 2020-10-07 12:18 | PC.NURSE ---
TR band deflated and removed. Site asymptomatic, no hematoma leaking or oozing noted. Bandaid dressing applied.
== END 2020-10-07 15:08 | disposition home or self-care (01) ==
PROVIDERS: PCP Family Medicine; Visit Provider Internal Medicine Cardiovascular Disease
DX: I25.10 Atherosclerotic heart disease of native coronary artery without angina pectoris (principal); I10 Essential (primary) hypertension; G35 Multiple sclerosis
CPT/HCPCS: 36415; 80061; 85347; 87426; 93454; C1769; C1874; C1887; C1894; C9600; J1644; J2250; J3010; J3490; J7030; Q0163; Q9967

== ENCOUNTER → 2020-10-14 10:16 | Outpatient (BNVA) | payer MEDICARE, MEDICAID, SELFPAY | PROVIDERS: PCP Family Medicine; Visit Provider Nurse Practitioner Family | DX: I25.10 Atherosclerotic heart disease of native coronary artery without angina pectoris (principal); Z95.5 Presence of coronary angioplasty implant and graft; Z09 Encounter for follow-up examination after completed treatment for conditions other than malignant neoplasm | CPT/HCPCS: 80048 ==

== ENCOUNTER 2020-10-20 13:26 | Outpatient (RCR) | payer MEDICARE, MEDICAID, SELFPAY | END 2020-11-03 23:59 | disposition home or self-care (01) | LOC: CR 13:26 | PROVIDERS: PCP Family Medicine; Referring Provider Internal Medicine Cardiovascular Disease; Visit Provider Internal Medicine Cardiovascular Disease | DX: Z95.5 Presence of coronary angioplasty implant and graft (principal) | CPT/HCPCS: 93798 ==

== ENCOUNTER 2020-11-05 15:06 | Outpatient (RCR) | payer MEDICARE, MEDICAID, SELFPAY | END 2020-12-03 23:59 | disposition home or self-care (01) | LOC: CR 15:06 | PROVIDERS: PCP Family Medicine; Referring Provider Internal Medicine Cardiovascular Disease; Visit Provider Internal Medicine Cardiovascular Disease | DX: Z95.5 Presence of coronary angioplasty implant and graft (principal) | CPT/HCPCS: 93798 ==

== ENCOUNTER 2021-06-27 03:24 | Emergency (ER) | payer MEDICARE, MEDICAID, SELFPAY ==
[2021-06-27] VITALS (8 sets, daily range): BP systolic 92–145; BP diastolic 57–93; PULSE 77–114; RESP 12–27; TEMP 36.5; O2SAT 94–99
--- NOTE | 2021-06-27 04:02 | ECG_ITS ---
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 Measurements Intervals [employer] Rate: 95 P: 29 CT: 163 QRS: 1 QRSD: 81 T: 30 QT: 330 QTc: 415 Interpretive Statements SINUS RHYTHM Compared to ECG 09/30/2020 16:19:09 No significant changes Electronically Signed On 06-27-2021 19:27:16 CDT by Juanito Alcantar M.D. [id number]
[2021-06-27] MEDS: sodium chloride 0.9% 1,000 ML 999 ML IV (04:26)
[2021-06-27] MEDS: ondansetron 2 mg/ML SDV 2 mL 4 MG IVP (04:28)
[2021-06-27 04:38] LABS: Basophils % 0.5 %; Eosinophils # 0.2 10^3/uL (0.0-0.8); Hematocrit 37.9 % (42.0-52.0); Lymphocytes # 2.8 10^3/uL (0.8-4.8); Lymphocytes % 32.5 %; Mean Corpuscular HGB Conc 31.7 g/dL (30.0-36.0); Mean Platelet Volume 10.4 fL (7.4-10.4); Monocytes # 0.6 10^3/uL (0.2-0.9); Monocytes % 7.4 %; Neutrophils # 4.88 10^3/uL (1.8-7.7); Neutrophils % 57.4 %; Nucleated Red Blood Cells % 0 %; Platelet Count 236 10^3/cmm (130-400); Red Cell Distribution Width 16.2 % (12.1-15.1); White Blood Count 8.5 10^3/uL (4.0-10.0)
--- NOTE | 2021-06-27 04:46 | W.ED.OVERDOS ---
HPI - Overdose General: Chief Complaint: Overdose Stated Complaint: pt thinks he took to many pills Time Seen by Provider: 06/27/21 03:52 Source: patient History of Present Illness: 40-year-old male with a history of multiple medical problems including coronary disease and multiple sclerosis. He presents with multiple symptoms, complaining of generalized weakness, tiredness, trouble concentrating, nausea, intermittent vomiting, forgetfulness. According to nursing triage, he believes he may have taken too many lorazepam. He denies overt chest pain. He says he has had a low-grade temperature. complaint: accidental overdose and other Onset (ago): hour(s) Intent: other Context: Intentional Overdose: other Context: Accidental Overdose: other Associated symptoms: depression, nausea/vomiting and abdominal pain Review of Systems Const: Reports: fever(s) and body aches; Denies: chills Eyes: Denies: change in vision ENMT: Denies: throat pain Card: Denies: chest pain or palpitations Resp: Reports: dyspnea; Denies: productive cough or non-productive cough GI: Reports: nausea and vomiting; Denies: abdominal pain Musc: Denies: neck pain Neuro: Reports: weakness in extremities and behavioral changes Psych: Reports: depression PFSH ED PFSH: Medical History Achilles tendonitis AVN (avascular necrosis of bone) CAD (coronary artery disease) Essential (primary) hypertension Multiple sclerosis Plantar fasciitis Presence of stent in LAD coronary artery Surgical History H/O esophagogastroduodenoscopy H/O gastric bypass S/P hip replacement bilateral Status post laparoscopic cholecystectomy (12/05/19) Family History Other Diabetes Heart disease Social History Alcohol intake: former Marital status: service: No Current occupational status: disabled History of recent travel: No Current gender identity: Male Physical Exam Const: GENERAL APPEARANCE: cooperative; not frail appearing HENMT: COMMON NORMALS: normocephalic, atraumatic and Normal external nose present HEAD & SCALP: normocephalic and atraumatic FACE & SINUS: normal facial exam NOSE: Normal external nose present THROAT IMAGE: 1. Only pulp showing. Mild erythema surrounding. No abscess. Eye: COMMON NORMALS: Equal, round and reactive pupils present and EOMs intact bilaterally PUPIL: Yes Equal, round and reactive pupils present Neck/C-Spine: COMMON NORMALS: supple Chest: COMMONS NORMALS: normal inspection of the chest Resp: COMMON NORMALS: normal respiratory effort, No use of accessory muscles and clear to auscultation bilaterally AUSCULTATION: clear to auscultation bilaterally Cardio: COMMON NORMALS: regular rate, regular rhythm and Peripheral pulses 2+ throughout RATE: regular rate RHYTHM: regular rhythm PERIPHERAL PULSES: Peripheral pulses 2+ throughout GI: COMMON NORMALS: Normal to inspection, nondistended, normoactive bowel sounds present, Soft to palpation and non-tender PALPATION: Yes Soft to palpation Extremity: COMMON NORMALS: no pedal edema Neuro: CEDRIC COMA SCALE: document GCS findings Homer coma scale eye opening: Spontaneous Homer coma scale verbal response: Orientated Homer coma scale motor response: Obey commands Homer coma scale total score: 15 SPEECH: abnormal speech Details: slurred Psych: ATTITUDE: Yes calm Course Vital Signs: Vital signs: Vital Signs Temperature 97.7 F 06/27/21 03:51 Pulse Rate 77 06/27/21 05:00 Respiratory Rate 20 H 06/27/21 05:00 Blood Pressure 119/57 06/27/21 05:00 Pulse Oximetry 94 06/27/21 05:00 MDM - Overdose Medical Decision Making 40-year-old male with a history of coronary disease and multiple sclerosis. He presents with mental status changes, generalized weakness, and multiple other symptoms. His white blood cell count is 8.5. He is afebrile here. His hemoglobin is 12. His BMP is normal. His first troponin is 6. His EKG is normal with a normal sinus rhythm, heart rate of 90, normal axis, and no acute ST changes. Intervals are normal. His chest x-ray is negative. He has no focal neurological deficits. His speech is slurred, and he appears drowsy. Multiple substances positive on drug screen including opiates, amphetamines (which she is prescribed), benzodiazepines, and marijuana. Polysubstance ingestion is likely a cause of at least most of his symptoms. His vital signs are completely normal. Currently, 123/76, sinus rhythm of 80, 95% on room air. Lab Data : 06/27/21 04:23 06/27/21 04:23 Laboratory Results WBC 8.5 10^3/uL (4.0-10.0) 06/27/21 04:23 RBC 4.80 10^6/uL (4.1-5.3) 06/27/21 04:23 Hgb 12.0 g/dL (11.7-16.6) 06/27/21 04:23 Hct 37.9 % (42.0-52.0) L 06/27/21 04:23 MCV 79.0 fl (80-94) L 06/27/21 04:23 MCH 25.0 pg (28.0-34.0) L 06/27/21 04:23 MCHC 31.7 g/dL (30.0-36.0) 06/27/21 04:23 RDW 16.2 % (12.1-15.1) H 06/27/21 04:23 Plt Count 236 10^3/cmm (130-400) 06/27/21 04:23 MPV 10.4 fL (7.4-10.4) 06/27/21 04:23 Neut % (Auto) 57.4 % 06/27/21 04:23 Lymph % (Auto) 32.5 % 06/27/21 04:23 Gillespie % (Auto) 7.4 % 06/27/21 04:23 Eos % (Auto) 2.0 % 06/27/21 04:23 Baso % (Auto) 0.5 % 06/27/21 04: Neut # (Auto) 4.88 10^3/uL (1.8-7.7) 06/27/21 04:23 Lymph # (Auto) 2.8 10^3/uL (0.8-4.8) 06/27/21 04:23 Gillespie # (Auto) 0.6 10^3/uL (0.2-0.9) 06/27/21 04:23 Eos # (Auto) 0.2 10^3/uL (0.0-0.8) 06/27/21 04:23 Baso # (Auto) 0.0 10^3/uL (0.0-0.1) 06/27/21 04:23 Nucleated RBC % (auto) 0 % 06/27/21 04:23 Nucleated RBCs # 0.0 /100WBC 06/27/21 04:23 Sodium 139 mmol/L (136-145) 06/27/21 04:23 Potassium 4.3 mmol/L (3.5-5.1) 06/27/21 04:23 Chloride 104 mmol/L (98-107) 06/27/21 04:23 Carbon Dioxide 24 mmol/L (22-29) 06/27/21 04:23 Anion Gap 15.3 (5-19) 06/27/21 04:23 BUN 9 mg/dL (6-20) 06/27/21 04:23 Creatinine 0.9 mg/dL (0.7-1.2) 06/27/21 04:23 GFR Calculation 92.5 mL/min (90-130) 06/27/21 04:23 Glucose 87 mg/dL (65-115) 06/27/21 04:23 Calculated Osmolality 286 mOsm/kg (285-295) 06/27/21 04:23 Calcium 8.4 mg/dL (8.5-10.5) L 06/27/21 04:23 Total Bilirubin 0.2 mg/dL (0.15-1.2) 06/27/21 04:23 AST 12 U/L (0-40) 06/27/21 04:23 ALT 13 U/L (0-41) 06/27/21 04:23 Alkaline Phosphatase 76 IU/L (40-130) 06/27/21 04:23 Troponin T Baseline 6 ng/L (0-15) 06/27/21 04:23 Total Protein 6.6 g/dL (6.6-8.7) 06/27/21 04:23 Albumin 4.2 g/dL (3.5-5.2) 06/27/21 04:23 Globulin 2.4 g/dL (1.3-4.6) 06/27/21 04:23 Urine Color Yellow (Yellow) 06/27/21 05:00 Urine Appearance Clear (CLEAR) 06/27/21 05:00 Urine pH 5 (5-7) 06/27/21 05:00 Ur Specific [place] 1.030 (1.005-1.030) 06/27/21 05:00 Urine Protein Neg (Negative) 06/27/21 05:00 Urine Glucose (UA) Norm (Normal) 06/27/21 05:00 Urine Ketones 1+ (Negative) H 06/27/21 05:00 Urine Blood Neg (Negative) 06/27/21 05:00 Urine Nitrate Negative (Negative) 06/27/21 05:00 Urine Bilirubin 1+ (Negative) H 06/27/21 05:00 Urine Urobilinogen 1 mg/dL (Negative) H 06/27/21 05:00 Ur Leukocyte Esterase Negative (Negative) 06/27/21 05:00 Digoxin 0.3 ng/mL (0.6-1.2) L 06/27/21 04:23 Salicylates < 0.3 mg/dL (3-10) L 06/27/21 04:23 Urine Opiates Screen Positive ng/mL (Negative) H 06/27/21 05:00 Acetaminophen 10.0 ug/mL (10-30) 06/27/21 04:23 Ur Barbiturates Screen Negative ng/mL (Negative) 06/27/21 05:00 Ur Phencyclidine Scrn Negative ng/mL (Negative) 06/27/21 05:00 Ur Amphetamines Screen Positive ng/mL (Negative) H 06/27/21 05:00 U Benzodiazepines Scrn Positive ng/mL (Negative) H 06/27/21 05:00 Urine Cocaine Screen Negative ng/mL (Negative) 06/27/21 05:00 U Marijuana (THC) Screen Positive ng/mL (Negative) H 06/27/21 05:00 Ethyl Alcohol < 10 mg/dL (0-10) 06/27/21 04:23 Discharge Plan Discharge Patient Disposition: Home Clinical Impression: Intoxication by drug Condition: Stable Prescriptions: No Action dextroamphetamine-amphetamine 20 mg capsule,extended release 24hr 20 mg PO DAILY 0RF nitroglycerin 0.4 mg tablet, sublingual 0.4 mg SUBLINGUAL Q5M PRN (Reason: Chest Pain) 0RF Rx Instructions: do not exceed 3 doses per episode pantoprazole 40 mg tablet,delayed release (DR/EC) 40 mg PO DAILY 0RF trazodone 100 mg tablet 100 mg PO DAILY 0RF sucralfate 1 gram tablet 1 gm PO TID Qty: 42 0RF duloxetine 20 mg capsule,delayed release(DR/EC) 20 mg PO DAILY 0RF digoxin 125 mcg (0.125 mg) tablet 125 mcg PO DAILY Qty: 90 3RF metoprolol succinate 50 mg tablet extended release 24 hr 50 mg PO DAILY Qty: 90 3RF atorvastatin 40 mg tablet 80 mg PO BEDTIME Qty: 180 3RF lorazepam 1 mg Tablet 1 mg PO BID PRN (Reason: Anxiety) 0RF aripiprazole 5 mg Tablet 5 mg PO DAILY 0RF clopidogrel 75 mg tablet 75 mg PO DAILY Qty: 90 3RF Adult Aspirin Regimen 81 mg tablet,delayed release (DR/EC) 81 mg PO DAILY Qty: 90 3RF Discharge Orders: Discharge ED (Routine); Ordered 06/27/21 Ordered By: Naresh Albright Referrals: Garrick Holt MD [Primary Care Provider] - 4-7 days Discharge Diet: Advance as tolerated Discharge Activity: Increase activity as tolerated Patient Instructions: Altered Mental Status (ED), Opioid Safety Activity Restrictions/Additional Instructions: Refrain from the use of sedatives for 48 hours at least, including pain medication, anxiety medication, etc. Return for worsening mental status despite this, vomiting liquids or medications, worsening weakness, other concerning symptoms. Coding Level of Care Code ED Rim Turning Machine Operator for Chg Fwd Exam Comprehensive
--- NOTE | 2021-06-27 04:49 | XRR_ITS ---
PROCEDURE INFORMATION: Exam: XR Chest Exam date and time: 06/27/2021 5:28 AM Age: 40 years old Clinical indication: Fever; Prior surgery; Surgery date: 6+ months; Surgery type: Stent; Additional info: Fever, weakness TECHNIQUE: Imaging protocol: XR of the chest. Views: 1 view. COMPARISON: CR Chest 2 views* [id number] 06/11/2018 1:19 PM FINDINGS: Lungs: Mild interstitial prominence likely exaggerated by low lung volumes, with somewhat limited visualization of the lung bases. No focal consolidation. Pleural spaces: No visible pleural effusion or pneumothorax. Heart/Mediastinum: Cardiac silhouette mildly enlarged factors. Bones/joints: Unremarkable. XR/XR chest 1V portable [id number] IMPRESSION: Mild diffuse interstitial prominence likely exaggerated by low lung volumes. No focal consolidation.
[2021-06-27 04:58] LABS: Digoxin 0.3 ng/mL (0.6-1.2)
[2021-06-27 04:59] LABS: Alanine Aminotransferase 13 U/L (0-41); Albumin Level 4.2 g/dL (3.5-5.2); Alkaline Phosphatase 76 IU/L (40-130); Anion Gap 15.3 (5-19); Aspartate Amino Transferase 12 U/L (0-40); Blood Urea Nitrogen 9 mg/dL (6-20); Calcium 8.4 mg/dL (8.5-10.5); Carbon Dioxide 24 mmol/L (22-29); Chloride 104 mmol/L (98-107); Globulin 2.4 g/dL (1.3-4.6); Glomerular Filtration Rate 92.5 mL/min (90-130); Glucose 87 mg/dL (65-115); Osmolality Calculated 286 mOsm/kg (285-295); Potassium 4.3 mmol/L (3.5-5.1); Sodium 139 mmol/L (136-145); Total Bilirubin 0.2 mg/dL (0.15-1.2); Total Protein 6.6 g/dL (6.6-8.7)
[2021-06-27 05:01] LABS: Troponin(5th) Baseline 6 ng/L (0-15)
[2021-06-27 05:07] LABS: Alcohol Level < 10 mg/dL (0-10); Salicylate < 0.3 mg/dL (3-10)
[2021-06-27 05:11] LABS: Add Urine Microscopic? NO; Charge for UA Resulting for Rev
[2021-06-27 05:13] LABS: Bilirubin Urine 1+ (Negative); Blood Urine Neg (Negative); Glucose Urine UA Norm (Normal); Ketones Urine 1+ (Negative); Leukocyte Esterase Urine Negative (Negative); Nitrate Urine Negative (Negative); Protein Urine Neg (Negative); Urine Appearance Clear (CLEAR); Urine Color Yellow (Yellow); Urobilinogen Urine 1 mg/dL (Negative); pH Urine 5 (5-7)
[2021-06-27 05:21] LABS: Amphetamines Screen Urine Positive (Negative); Barbiturates Screen Urine Negative (Negative); Benzodiazepines Screen Urine Positive (Negative); Cocaine Screen Urine Negative (Negative); Opiate Screen Urine Positive (Negative); PCP Screen Urine Negative (Negative); THC Screen Urine Positive (Negative)
--- NOTE | 2021-06-27 06:21 | ECG_ITS ---
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 Measurements Intervals [place] Rate: 84 P: 32 CT: 181 QRS: 11 QRSD: 92 T: 41 QT: 366 QTc: 435 Interpretive Statements SINUS RHYTHM Compared to ECG 06/27/2021 04:09:56 No significant changes Electronically Signed On 06-27-2021 19:32:25 CDT by Juanito Alcantar M.D. [id number]
--- NOTE | 2021-06-27 06:44 | PC.NURSE ---
Pt becoming anxious and will not stay on the stretcher, he cont to take off all monitoring equipment. He wants to be able to walk around go to the bathroom etc.. 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 He finally agreed and understood the instructions given and reason why.
[2021-06-27 09:07] LABS: Troponin 5 2HR Delta 0 ABS# (0-10)
== END 2021-06-27 06:53 | disposition home or self-care (01) ==
PROVIDERS: Emergency Provider Emergency Medicine; PCP Family Medicine
DX: R41.82 Altered mental status, unspecified (principal); R53.1 Weakness; R47.81 Slurred speech; R53.83 Other fatigue; T50.905A Adverse effect of unspecified drugs, medicaments and biological substances, initial encounter; Z79.899 Other long term (current) drug therapy; Z79.82 Long term (current) use of aspirin; Z79.02 Long term (current) use of antithrombotics/antiplatelets; G35 Multiple sclerosis; I25.10 Atherosclerotic heart disease of native coronary artery without angina pectoris; I10 Essential (primary) hypertension
CPT/HCPCS: 71045; 80053; 80162; 80306; 80307; 81003; 84484; 85025; 93005; 96361; 96374; 99284; J2405; J7030

== ENCOUNTER 2021-11-22 12:45 | Emergency (ER) | payer MEDICARE, MEDICAID, SELFPAY ==
--- NOTE | 2021-11-22 12:48 | XRR_ITS ---
PROCEDURE INFORMATION: Exam: XR Chest Exam date and time: 11/22/2021 1:11 PM Age: 40 years old Clinical indication: Pain; Angina pectoris; Additional info: Cp TECHNIQUE: Imaging protocol: Radiologic exam of the chest. Views: 1 view. COMPARISON: XR CHEST 06/27/2021 5:28 AM FINDINGS: Lungs: No pulmonary vascular congestion, pulmonary edema or pneumonia. Pleural spaces: No pleural effusion or pneumothorax. Heart/Mediastinum: The cardiac silhouette is not enlarged. The mediastinal contours are normal. Bones/joints: No acute osseous abnormality. XR/XR chest 1V portable [id number] IMPRESSION: No acute finding.
--- NOTE | 2021-11-22 13:04 | ECG_ITS ---
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 Measurements Intervals [place] Rate: 97 P: 35 IA: 163 QRS: 12 QRSD: 76 T: 56 QT: 325 QTc: 413 Interpretive Statements SINUS RHYTHM Compared to ECG 06/27/2021 06:20:30 No significant changes Electronically Signed On 11-22-2021 18:33:33 CDT by Juanito Alcantar M.D. [id number]
[2021-11-22 13:05] VITALS: BP 144/88; PULSE 99; RESP 16; TEMP 37.3; O2SAT 97
[2021-11-22 13:49] LABS: Troponin(5th) Baseline 6 ng/L (0-15)
[2021-11-22 13:50] LABS: Alanine Aminotransferase 14 U/L (0-41); Albumin Level 4.2 g/dL (3.5-5.2); Alkaline Phosphatase 80 U/L (40-130); Anion Gap 15.9 (5-19); Aspartate Amino Transferase 15 U/L (0-40); Blood Urea Nitrogen 9 mg/dL (6-20); Calcium 9.1 mg/dL (8.5-10.5); Carbon Dioxide 23 mmol/L (22-29); Chloride 103 mmol/L (98-107); Glucose 90 mg/dL (65-115); Osmolality Calculated 284 mOsm/kg (285-295); Potassium 3.9 mmol/L (3.5-5.1); Sodium 138 mmol/L (136-145); Total Bilirubin 0.2 mg/dL (0.15-1.2); Total Protein 7.2 g/dL (6.6-8.7)
[2021-11-22 14:55] VITALS: BP 145/74; PULSE 84; RESP 18; O2SAT 99
--- NOTE | 2021-11-22 15:37 | PC.PHAR ---
pt states he takes care of his own medications-pt states he hasnt taken gabapentin 600mg daily for a month or so ext med history shows last filled 10/17/21 30d/s-pt states he hasnt picked up the baclofen 10mg q8h prn filled 11/12/21
[2021-11-22 15:39] LABS: Troponin 5 2HR 6.49 ng/L (0-15)
[2021-11-22 15:42] LABS: Troponin 5 2HR Delta 0.49 ABS# (0-10)
--- NOTE | 2021-11-22 15:42 | ED_ITS ---
HPI - Chest Pain General: Chief Complaint: Chest Pain Stated Complaint: Chest Pain Time Seen by Provider: 11/22/21 14:51 History of Present Illness: 40-year-old male presents with chest pain. He reports that it comes and goes. Is been going on for about a week to 10 days. That over the last day or 2 is gotten maybe a little bit more painful. That when it occurs he feels like he is getting kicked by a horse and . He reports that he has had stents previously placed by Dr. Newell. That this is presented at that time. At that time he had negative EKGs and negative troponins but ended up with 2 stents. Patient is not currently having active chest pain at this time. Associated symptoms: Deny abdominal pain, dyspnea, fever(s), nausea, syncope or vomiting Review of Systems Const: Denies: fever(s) or chills Eyes: Denies: change in vision or blurry vision Card: Reports: chest pain; Denies: lightheadedness or syncope Resp: Denies: dyspnea or productive cough GI: Denies: abdominal pain, nausea or vomiting : Denies: flank pain or difficulty urinating Musc: Denies: neck pain or back pain Skin/Breast: Denies: rash or pruritus Neuro: Denies: headache(s) or numbness in extremities Psych: Denies: anxiety or depression PFSH ED PFSH: Medical History Achilles tendonitis AVN (avascular necrosis of bone) CAD (coronary artery disease) Essential (primary) hypertension Multiple sclerosis Plantar fasciitis Presence of stent in LAD coronary artery Surgical History H/O esophagogastroduodenoscopy H/O gastric bypass S/P hip replacement bilateral Status post laparoscopic cholecystectomy (12/05/19) Family History Other Diabetes Heart disease Social History Alcohol intake: former Marital status: service: No Current occupational status: disabled History of recent travel: No Current gender identity: Male Physical Exam Const: COMMON NORMALS: no acute distress, patient oriented x3, no limitations and alert HENMT: COMMON NORMALS: normocephalic and hearing grossly normal bilaterally HEAD & SCALP: normocephalic Eye: COMMON NORMALS: Equal, round and reactive pupils present and EOMs intact bilaterally PUPIL: Yes Equal, round and reactive pupils present Resp: COMMON NORMALS: normal respiratory effort, No use of accessory muscles and clear to auscultation bilaterally AUSCULTATION: clear to auscultation bilaterally Cardio: COMMON NORMALS: regular rate and regular rhythm RATE: regular rate RHYTHM: regular rhythm GI: COMMON NORMALS: Soft to palpation and non-tender PALPATION: Yes Soft to palpation Extremity: COMMON NORMALS: normal to inspection, full ROM and capillary refill normal Neuro: COMMON NORMALS: patient oriented x3, moves all extremities and no focal motor deficits SENSORIUM/ORIENTATION: Yes alert Psych: COMMON NORMALS: mental status grossly normal, cooperative and normal affect Skin: COMMON NORMALS: no rashes or lesions noted and turgor normal GENERAL SKIN EXAM: no rashes or lesions noted and turgor normal Course Vital Signs: Vital signs: Vital Signs Temperature 99.2 F 11/22/21 13:05 Pulse Rate 84 11/22/21 14:55 Respiratory Rate 18 11/22/21 14:55 Blood Pressure 145/74 11/22/21 14:55 Pulse Oximetry 99 11/22/21 14:55 Oxygen Delivery Me thod 11/22/21 14:55 MDM - Chest Pain Medical Decision Making Patient with negative troponin x2, negative EKG X2. Patient with no active chest pain at this time. Patient decided that he would prefer not to wait while I consult cardiology since this is a similar story to his past stents. 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 Patient requested discharge and left prior to receiving his paperwork. Lab Data : 11/22/21 13:22 Radiology Impressions Chest X-Ray 11/22/21 12:48 IMPRESSION: No acute finding. Laboratory Results Sodium 138 mmol/L (136-145) 11/22/21 13:22 Potassium 3.9 mmol/L (3.5-5.1) 11/22/21 13:22 Chloride 103 mmol/L (98-107) 11/22/21 13:22 Carbon Dioxide 23 mmol/L (22-29) 11/22/21 13:22 Anion Gap 15.9 (5-19) 11/22/21 13:22 BUN 9 mg/dL (6-20) 11/22/21 13:22 Creatinine 0.8 mg/dL (0.7-1.2) 11/22/21 13:22 GFR Calculation 106.0 mL/min (90-130) 11/22/21 13:22 Glucose 90 mg/dL (65-115) 11/22/21 13:22 Calculated Osmolality 284 mOsm/kg (285-295) L 11/22/21 13:22 Calcium 9.1 mg/dL (8.5-10.5) 11/22/21 13:22 Total Bilirubin 0.2 mg/dL (0.15-1.2) 11/22/21 13:22 AST 15 U/L (0-40) 11/22/21 13:22 ALT 14 U/L (0-41) 11/22/21 13:22 Alkaline Phosphatase 80 U/L (40-130) 11/22/21 13:22 Troponin T Baseline 6 ng/L (0-15) 11/22/21 13:22 Troponin T 120 Minute 6.49 ng/L (0-15) 11/22/21 15:08 Delta Troponin T 0.49 ABS# (0-10) 11/22/21 15:08 Total Protein 7.2 g/dL (6.6-8.7) 11/22/21 13:22 Albumin 4.2 g/dL (3.5-5.2) 11/22/21 13:22 Globulin 3.0 g/dL (1.3-4.6) 11/22/21 13:22 Discharge Plan Discharge Condition: Stable Prescriptions: No Action nitroglycerin 0.4 mg tablet, sublingual 0.4 mg SUBLINGUAL Q5M PRN (Reason: Chest Pain) Rx Instructions: do not exceed 3 doses per episode pantoprazole 40 mg tablet,delayed release (DR/EC) 40 mg PO QAM sucralfate 1 gram tablet 1 gm PO TID Qty: 42 0RF atorvastatin 40 mg tablet 80 mg PO BEDTIME Qty: 180 3RF lorazepam 1 mg Tablet 1 mg PO BID PRN (Reason: Anxiety) dextroamphetamine-amphetamine 20 mg capsule,extended release 24hr 20 mg PO QAM baclofen 10 mg tablet 10 mg PO Q8H PRN (Reason: Muscle Spasm) trazodone 150 mg tablet 150 mg PO BEDTIME acetaminophen-codeine 300-60 mg tablet 1 tab PO TID PRN (Reason: Pain) duloxetine 60 mg capsule,delayed release(DR/EC) 60 mg PO QAM metoprolol succinate 50 mg tablet extended release 24 hr 50 mg PO QAM clopidogrel 75 mg tablet 75 mg PO QAM Adult Aspirin Regimen 81 mg tablet,delayed release (DR/EC) 81 mg PO QAM Referrals: Garrick Holt MD [Primary Care Provider] - Coding Level of Care Code ED Donor Processor for Chg Fwd Exam Comprehensive
== END 2021-11-22 16:22 | disposition home or self-care (01) ==
PROVIDERS: Emergency Medicine; Emergency Provider Student in an Organized Health Care Education/Training Program; PCP Family Medicine
DX: R07.9 Chest pain, unspecified (principal); Z79.02 Long term (current) use of antithrombotics/antiplatelets; Z79.82 Long term (current) use of aspirin; I25.10 Atherosclerotic heart disease of native coronary artery without angina pectoris; I10 Essential (primary) hypertension; G35 Multiple sclerosis
CPT/HCPCS: 36415; 71045; 80053; 84484; 93005; 99285

== ENCOUNTER → 2021-11-25 15:20 | Outpatient (BNVA) | payer MEDICARE, MEDICAID, SELFPAY | PROVIDERS: PCP Family Medicine; Visit Provider Internal Medicine Cardiovascular Disease | DX: R07.9 Chest pain, unspecified (principal); R06.02 Shortness of breath; I25.10 Atherosclerotic heart disease of native coronary artery without angina pectoris; I10 Essential (primary) hypertension; E78.5 Hyperlipidemia, unspecified; Z87.891 Personal history of nicotine dependence | CPT/HCPCS: 93005; 99214 ==

== ENCOUNTER 2021-12-17 07:23 | Outpatient (CLI) | payer MEDICARE, MEDICAID, SELFPAY ==
[2021-12-17 07:43] VITALS: BMI 34.0
--- NOTE | 2021-12-17 08:18 | NMCV_ITS ---
NM catalina perf SPECT r/s* [id number] Joselito Avendano Age: 41 Gender: M : 1980 Exam Date: 12/17/2021 08:51 Ordering Phys: Sangita Mcdonough MD ([email or web address]) Technologist: DAREK Salgado Exam Location: [facility] Indications: CHEST PAIN STRESS TEST Please see separate stress test report in [facility] for full findings IMAGE PROTOCOL Rest/Stress 1 Lexiscan Day Radiopharmaceutical Dose (mCi) Administration Site Administered by Rest: Tc-99m 10.8 IV DAREK Quinn Sestamibi Stress:Tc-99m 33.0 IV DAREK Quinn Sestamibi Rest: 17-Dec-2021 60 Discovery 630 Stress: 17-Dec-2021 30 Discovery 630 0.4mg Lexiscan. Images obtained in supine and prone position. SPECT RESULTS Technical Quality: Excellent Raw Data Analysis: Normal Image Corrections: No attenuation or motion correction applied Summed Stress Score: 0 Summed Rest Score: 0 Summed Difference Score: 0 PERFUSION FINDINGS SPECT images demonstrate homogeneous tracer distribution throughout the myocardium. FUNCTIONAL RESULTS (calculated via Gated SPECT) Stress Image LV EF (%): 70 Stress EDV (mL):118 TID: 0.86 Stress ESV (mL):35 FUNCTIONAL FINDINGS: The left ventricle is normal in size. Transient Ischemia Dilatation of 0.86. The left ventricular ejection fraction is normal with a value of 70%. There is normal left ventricular wall thickening. Normal end-diastolic and end-systolic volumes. IMPRESSIONS 1. Myocardial perfusion imaging is normal. 2. Overall left ventricular systolic function is normal without regional wall motion abnormalities, LVEF=70%. 3. No EKG changes with Lexiscan infusion. Refer to separate report for details. Sangita Mcdonough MD (Electronically Signed) Final Date: 20 December 2021 17:10 S
--- NOTE | 2021-12-17 08:18 | ECG_ITS ---
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 Interpretive Statements NAME OF STUDY: LEXISCAN SESTAMIBI STRESS TEST INDICATION: Shortness of Breath; Chest Pain PROCEDURE: At the baseline, the blood pressure was 130/68 mmHg, oxygen saturation 92% with a heart rate of 51 bpm. The electrocardiogram showed sinus bradycardia, normal axis with normal ST and T's. The Lexiscan was infused over a period of 20 seconds. A total of 0.4 milligrams of Lexiscan was infused. The stress phase was continued for a total of 5 minutes. Heart rate at the end of the stress phase was 81 bpm, oxygen saturation 94% with a blood pressure of 118/67 mmHg. The EKG at the peak infusion revealed sinus rhythm with nonspecific T wave inversion. Sestamibi was injected 20 seconds after the Lexiscan infusion. Blood pressure at the end of the recovery phase was 117/70 mmHg, oxygen saturation 92% with a heart rate of 72 beats per minute. CONCLUSION: 1. No significant EKG changes with the LexiScan infusion. 2. No LexiScan induced chest pain or cardiac arrhythmia. 3. Normal blood pressure and heart rate response. 4. Sestamibi/sestamibi perfusion scan pending; see separate report. Electronically Signed On 12-20-2021 10:13:17 CDT by Sangita Mcdonough M.D. [id number]
[2021-12-17] MEDS: regadenoson 0.4 Mg/5 ml Syringe IVP (09:46)
[2021-12-17 09:57] VITALS: BP 117/70; PULSE 72
== END 2021-12-17 07:24 | disposition home or self-care (01) ==
LOC: CDL 07:25
PROVIDERS: PCP Family Medicine; Visit Provider Internal Medicine Cardiovascular Disease
DX: R07.9 Chest pain, unspecified (principal); R06.02 Shortness of breath; I25.10 Atherosclerotic heart disease of native coronary artery without angina pectoris
CPT/HCPCS: 78452; 93017; A9500; J2785

== ENCOUNTER 2022-01-30 22:06 | Emergency (ER) | payer MEDICARE, MEDICAID, SELFPAY ==
[2022-01-30 22:18] VITALS: BMI 35.4
[2022-01-30 22:22] VITALS: BP 146/93; PULSE 75; RESP 16; TEMP 36.9; O2SAT 100
--- NOTE | 2022-01-30 22:29 | CTR_ITS ---
PROCEDURE INFORMATION: Exam: CT Abdomen And Pelvis With Contrast Exam date and time: 01/30/2022 10:46 PM Age: 41 years old Clinical indication: Abdominal pain; Additional info: Abd pain TECHNIQUE: Imaging protocol: Computed tomography of the abdomen and pelvis with contrast. Radiation optimization: All CT scans at this facility use at least one of these dose optimization techniques: automated exposure control; mA and/or kV adjustment per patient size (includes targeted exams where dose is matched to clinical indication); or iterative reconstruction. Contrast material: OMNIPAQUE 350; Contrast volume: 100 ml; Contrast route: INTRAVENOUS (IV); COMPARISON: CT abdomen pelvis w con* [id number] 11/05/2019 10:26 AM RADIATION DOSE METRICS: Total DLP (mGy-cm): 1034.63 FINDINGS: Liver: Normal. No mass. Gallbladder and bile ducts: Cholecystectomy. Pancreas: Normal. No ductal dilation. Spleen: Normal. No splenomegaly. Adrenal glands: Normal. No mass. Kidneys and ureters: Normal. No hydronephrosis. Stomach and bowel: Gastric surgical sutures. Prominent fluid in the small bowel without dilation may reflect an enteritis. Diverticulosis without diverticulitis. Appendix: No evidence of appendicitis. Intraperitoneal space: Unremarkable. No free air. No significant fluid collection. Vasculature: Unremarkable. No abdominal aortic aneurysm. 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 Urinary bladder: Unremarkable as visualized. Reproductive: Unremarkable as visualized. Bones/joints: Bilateral hip arthroplasty changes. Soft tissues: Unremarkable. CT/CT abdomen pelvis w con* [id number] IMPRESSION: 1. Prominent fluid in the small bowel without dilation may reflect an enteritis. 2. Cholecystectomy. 3. Gastric surgical sutures. 4. Bilateral hip arthroplasty changes. 5. Diverticulosis without diverticulitis. 6. 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
--- NOTE | 2022-01-30 22:29 | ECG_ITS ---
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 Measurements Intervals [place] Rate: 71 P: 39 MT: 188 QRS: 16 QRSD: 74 T: 43 QT: 370 QTc: 404 Interpretive Statements SINUS RHYTHM Compared to ECG 11/22/2021 13:04:42 No significant changes Electronically Signed On 01-31-2022 14:20:59 WATER VALVE REPAIRER by Xiao Herzog M.D. [id number]
--- NOTE | 2022-01-30 22:30 | W.ED.ABDPA2 ---
HPI - Abdominal Pain General: Chief Complaint: Abdominal Pain Stated Complaint: ABD Pain Time Seen by Provider: 01/30/22 22:09 Source: patient Mode of arrival: ambulatory Limitations: no limitations History of Present Illness: 41-year-old male states he been having abdominal pain since Monday states its been epigastric and right upper quadrant he states pain is sharp in nature and is worsened throughout the week. He has had vomiting and diarrhea. Denies any worsening proving factors. He has a history of a gastric bypass in the past along with cholecystectomy. Associated Symptoms: Reports diarrhea, nausea and vomiting; Denies chills, dysuria and fever(s) Review of Systems Const: Denies: fever(s), chills, body aches or change in appetite Eyes: Denies: blurry vision or eye discomfort ENMT: Denies: throat pain or dental pain Card: Denies: chest pain Resp: Denies: dyspnea GI: Reports: abdominal pain, nausea, vomiting and diarrhea : Denies: dysuria Musc: Denies: neck pain or back pain Skin/Breast: Denies: rash Neuro: Denies: headache(s) Psych: Denies: depression Derek/Lymph: Denies: easy bruising All/Imm: Denies: urticaria PFSH ED PFSH: Medical History Achilles tendonitis AVN (avascular necrosis of bone) CAD (coronary artery disease) Depressive disorder Essential (primary) hypertension Hyperlipidemia Multiple sclerosis Plantar fasciitis Presence of stent in LAD coronary artery Smoker Surgical History H/O esophagogastroduodenoscopy H/O gastric bypass S/P hip replacement bilateral Status post laparoscopic cholecystectomy (12/05/19) Family History Other Diabetes Heart disease Social History Smoking and tobacco status: former smoker Alcohol intake: former Marital status: service: No Current occupational status: disabled History of recent travel: No Current gender identity: Male Physical Exam Const: COMMON NORMALS: no acute distress, patient oriented x3 and healthy appearing HENMT: COMMON NORMALS: normocephalic and atraumatic HEAD & SCALP: normocephalic and atraumatic Eye: COMMON NORMALS: Equal, round and reactive pupils present and EOMs intact bilaterally PUPIL: Yes Equal, round and reactive pupils present Neck/C-Spine: COMMON NORMALS: full ROM and supple Chest: COMMONS NORMALS: normal inspection of the chest and normal palpation of entire chest wall Resp: COMMON NORMALS: normal respiratory effort, No retractions, No use of accessory muscles and clear to auscultation bilaterally AUSCULTATION: clear to auscultation bilaterally Cardio: COMMON NORMALS: regular rate, regular rhythm and No murmurs present (Cardio) RATE: regular rate RHYTHM: regular rhythm GI: COMMON NORMALS: Normal to inspection, nondistended, normoactive bowel sounds present, Soft to palpation and no masses PALPATION: Yes Soft to palpation OTHER: epigastric tenderness Extremity: COMMON NORMALS: normal to inspection and full ROM Neuro: COMMON NORMALS: patient oriented x3, moves all extremities and no focal motor deficits Psych: COMMON NORMALS: mental status grossly normal, Normal thought process present and cooperative THOUGHT PROCESS: Normal thought process present Skin: COMMON NORMALS: no rashes or lesions noted and no wounds GENERAL SKIN EXAM: no rashes or lesions noted Course Vital Signs: Vital signs: Vital Signs Temperature 98.4 F 01/30/22 22:22 Pulse Rate 75 01/30/22 22:22 Respiratory Rate 16 01/30/22 22:22 Blood Pressure 146/93 01/30/22 22:22 Pulse Oximetry 100 01/30/22 22:22 Oxygen Delivery Me thod 01/30/22 22:22 MDM - Abdominal Pain Medical Decision Making Patient presents here with abdominal pain is likely a gastritis is CT and blood work are all normal patient stable for discharge he is to follow-up PCP and return if worsening he understands agrees to plan. Lab Data 01/30/22 22:40 01/30/22 22:40 Labs/Radiology: Radiology Impressions Abdomen/Pelvis CT 01/30/22 22:29 IMPRESSION: 1. Prominent fluid in the small bowel without dilation may reflect an enteritis. 2. Cholecystectomy. 3. Gastric surgical sutures. 4. Bilateral hip arthroplasty changes. 5. Diverticulosis without diverticulitis. 6. 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 Laboratory Results WBC 9.3 10^3/uL (4.0-10.0) 01/30/22 22:40 RBC 5.08 10^6/uL (4.1-5.3) 01/30/22 22:40 Hgb 12.3 g/dL (11.7-16.6) 01/30/22 22:40 Hct 39.7 % (42.0-52.0) L 01/30/22 22:40 MCV 78.1 fl (80-94) L 01/30/22 22:40 MCH 24.2 pg (28.0-34.0) L 01/30/22 22:40 MCHC 31.0 g/dL (30.0-36.0) 01/30/22:40 RDW 17.6 % (12.1-15.1) H 01/30/22 22:40 Plt Count 298 10^3/cmm (130-400) 01/30/22 22:40 MPV 10.1 fL (7.4-10.4) 01/30/22 22:40 Neut % (Auto) 58.5 % 01/30/22 22:40 Lymph % (Auto) 31.6 % 01/30/22 22:40 [place] % (Auto) 7.0 % 01/30/22 22:40 Eos % (Auto) 2.3 % 01/30/22 22:40 Baso % (Auto) 0.4 % 01/30/22 22:40 Neut # (Auto) 5.42 10^3/uL (1.8-7.7) 01/30/22 22:40 Lymph # (Auto) 2.9 10^3/uL (0.8-4.8) 01/30/22 22:40 [place] # (Auto) 0.7 10^3/uL (0.2-0.9) 01/30/22 22:40 Eos # (Auto) 0.2 10^3/uL (0.0-0.8) 01/30/22 22:40 Baso # (Auto) 0.0 10^3/uL (0.0-0.1) 01/30/22 22:40 Nucleated RBC % (auto) 0 % 01/30/22:40 Nucleated RBCs # 0.0 /100WBC 01/30/22 22:40 Sodium 133 mmol/L (136-145) L 01/30/22 22:40 Potassium 3.8 mmol/L (3.5-5.1) 01/30/22 22:40 Chloride 97 mmol/L (98-107) L 01/30/22 22:40 Carbon Dioxide 25 mmol/L (22-29) 01/30/22 22:40 Anion Gap 14.8 (5-19) 01/30/22 22:40 BUN 10 mg/dL (6-20) 01/30/22 22:40 Creatinine 0.7 mg/dL (0.7-1.2) 01/30/22 22:40 GFR Calculation 123.1 mL/min (90-130) 01/30/22 22:40 Glucose 96 mg/dL (65-115) 01/30/22 22:40 Calculated Osmolality 275 mOsm/kg (285-295) L 01/30/22 22:40 Calcium 9.5 mg/dL (8.5-10.5) 01/30/22 22:40 Total Bilirubin 0.2 mg/dL (0.15-1.2) 01/30/22 22:40 AST 20 U/L (0-40) 01/30/22 22:40 ALT 17 U/L (0-41) 01/30/22 22:40 Alkaline Phosphatase 94 U/L (40-130) 01/30/22 22:40 Total Protein 7.7 g/dL (6.6-8.7) 01/30/22 22:40 Albumin 4.3 g/dL (3.5-5.2) 01/30/22 22:40 Globulin 3.4 g/dL (1.3-4.6) 01/30/22 22:40 Lipase 31 U/L (13-60) 01/30/22 22:40 EKG Data EKG 1: I personally reviewed and interpreted this EKG as follows: EKG interpretation date: 01/30/22 EKG interpretation time: 22:40 Interpretation: nsr hr [address] or t wave abnormalities qrs 74 qtc 393 Discharge Plan Discharge Patient Disposition: Home Clinical Impression: Abdominal pain Condition: Stable Prescriptions: New ondansetron 4 mg tablet,disintegrating 4 mg PO Q6H PRN (Reason: nausea and vomiting) Qty: 14 0RF No Action nitroglycerin 0.4 mg tablet, sublingual 0.4 mg SUBLINGUAL Q5M PRN (Reason: Chest Pain) Rx Instructions: do not exceed 3 doses per episode pantoprazole 40 mg tablet,delayed release (DR/EC) 40 mg PO QAM sucralfate 1 gram tablet 1 gm PO TID Qty: 42 0RF isosorbide mononitrate 30 mg tablet extended release 24 hr 15 mg PO DAILY Qty: 15 6RF atorvastatin 40 mg tablet 80 mg PO BEDTIME Qty: 180 3RF lorazepam 1 mg Tablet 1 mg PO BID PRN (Reason: Anxiety) dextroamphetamine-amphetamine 20 mg capsule,extended release 24hr 20 mg PO QAM baclofen 10 mg tablet 10 mg PO Q8H PRN (Reason: Muscle Spasm) trazodone 150 mg tablet 150 mg PO BEDTIME acetaminophen-codeine 300-60 mg tablet 1 tab PO TID PRN (Reason: Pain) duloxetine 60 mg capsule,delayed release(DR/EC) 60 mg PO QAM metoprolol succinate 50 mg tablet extended release 24 hr 50 mg PO QAM clopidogrel 75 mg tablet 75 mg PO QAM Adult Aspirin Regimen 81 mg tablet,delayed release (DR/EC) 81 mg PO QAM Discharge Orders: Discharge ED (Routine); Ordered 01/30/22 Ordered By: Ismael Plasencia Referrals: Garrick Holt MD [Primary Care Provider] - 1-3 days Discharge Diet: Advance as tolerated Discharge Activity: Resume usual activity Patient Instructions: Abdominal Pain (ED) Coding Level of Care Code ED Coordinator Of Library Services for g Fwd Exam Comprehensive
[2022-01-30] MEDS: iohexol 350 mg/mL 500 mL Btl (per mL) IV (22:53)
[2022-01-30 22:57] LABS: Basophils % 0.4 %; Eosinophils # 0.2 10^3/uL (0.0-0.8); Eosinophils % 2.3 %; Hematocrit 39.7 % (42.0-52.0); Hemoglobin 12.3 g/dL (11.7-16.6); Lymphocytes # 2.9 10^3/uL (0.8-4.8); Lymphocytes % 31.6 %; Mean Corpuscular Hemoglobin 24.2 pg (28.0-34.0); Mean Corpuscular Volume 78.1 fl (80-94); Mean Platelet Volume 10.1 fL (7.4-10.4); Monocytes # 0.7 10^3/uL (0.2-0.9); Neutrophils # 5.42 10^3/uL (1.8-7.7); Neutrophils % 58.5 %; Nucleated Red Blood Cells % 0 %; Platelet Count 298 10^3/cmm (130-400); Red Blood Count 5.08 10^6/uL (4.1-5.3); Red Cell Distribution Width 17.6 % (12.1-15.1); White Blood Count 9.3 10^3/uL (4.0-10.0)
[2022-01-30] MEDS: ondansetron 2 mg/ML SDV 2 mL 4 MG IVP (23:10)
[2022-01-30 23:13] LABS: Alanine Aminotransferase 17 U/L (0-41); Albumin Level 4.3 g/dL (3.5-5.2); Alkaline Phosphatase 94 U/L (40-130); Anion Gap 14.8 (5-19); Aspartate Amino Transferase 20 U/L (0-40); Blood Urea Nitrogen 10 mg/dL (6-20); Calcium 9.5 mg/dL (8.5-10.5); Carbon Dioxide 25 mmol/L (22-29); Chloride 97 mmol/L (98-107); Globulin 3.4 g/dL (1.3-4.6); Glomerular Filtration Rate 123.1 mL/min (90-130); Glucose 96 mg/dL (65-115); Lipase 31 U/L (13-60); Osmolality Calculated 275 mOsm/kg (285-295); Potassium 3.8 mmol/L (3.5-5.1); Sodium 133 mmol/L (136-145); Total Bilirubin 0.2 mg/dL (0.15-1.2); Total Protein 7.7 g/dL (6.6-8.7)
== END 2022-01-30 23:40 | disposition home or self-care (01) ==
PROVIDERS: Emergency Provider Emergency Medicine; PCP Family Medicine
DX: R10.13 Epigastric pain (principal); R10.11 Right upper quadrant pain; R11.2 Nausea with vomiting, unspecified; R19.7 Diarrhea, unspecified; Z90.49 Acquired absence of other specified parts of digestive tract; Z98.84 Bariatric surgery status
CPT/HCPCS: 74177; 80053; 83690; 85025; 93005; 96374; 99285; J2405; Q9967